=== PATIENT | male | born 1980 | race Caucasian/White ===

== ENCOUNTER 2025-02-21 08:36 | Emergency (ER) | payer BC, OTHER ==
[2025-02-21] MEDS ORDERED: Sodium Chloride 0.9% 10 ML Syringe FLUSH PRN (09:13)
[2025-02-21 09:19] LABS: BASOPHILS PERCENT AUTO 0.4 % (0.0-1.0); HEMOGLOBIN 16.8 gm/dl (14.0-18.0); IMMATURE GRAN ABSOLUTE AUTO 0.04 K/mm3 (0.00-0.05); IMMATURE GRAN PERCENT AUTO 0.7 % (0.0-0.4); LYMPHOCYTES ABSOLUTE AUTO 0.6 K/mm3 (1.0-4.8); LYMPHOCYTES PERCENT AUTO 10.2 % (24.0-44.0); MEAN CORPUSCULAR HEMOGLOBIN 29.6 pg (28.0-32.0); MEAN CORPUSCULAR HGB CONC 34.3 g/dl (32.0-36.0); MEAN CORPUSCULAR VOLUME 86.4 fl (83.0-99.0); MEAN PLATELET VOLUME 10.2 fl (9.4-12.4); MONOCYTES ABSOLUTE AUTO 0.9 K/mm3 (0.0-0.8); MONOCYTES PERCENT AUTO 15.8 % (0.0-8.0); NEUTROPHILS ABSOLUTE AUTO 4.1 K/mm3 (1.8-7.7); NEUTROPHILS PERCENT AUTO 72.9 % (41.0-71.0); PLATELET COUNT,PLT 157 K/mm3 (150-400); RED BLOOD CELL COUNT 5.67 M/mm3 (4.52-5.90); WHITE BLOOD CELL COUNT,WBC 5.68 K/mm3 (3.9-11.3)
[2025-02-21] MEDS: Metoclopramide 10 MG/2 ML SDV IVPUSH ONE (09:21)
[2025-02-21] MEDS: Lactated Ringers 1,000 ML IV ONE ×2 (09:21→12:56)
[2025-02-21 09:34] LABS: A/G RATIO 0.9 (1-2); ALBUMIN 3.5 g/dl (3.4-5.0); ANION GAP 12.8 (5-15); BILIRUBIN TOTAL 1.1 mg/dL (0.2-1.0); BUN/CREATININE RATIO 10.8 (14-18); CALCIUM 9.3 mg/dL (8.5-10.1); CREATININE 1.3 mg/dL (0.7-1.3); EST CRCL DRUG DOSING (CG) 78.04 mL/min; POTASSIUM,K 3.8 mEq/L (3.5-5.1); PROTEIN TOTAL,TP 7.3 g/dl (6.4-8.2)
[2025-02-21 10:24] LABS: SLIDE REVIEW ABNORMAL SMEAR
[2025-02-21] MEDS: Dicyclomine 10 MG Cap PO ONE (11:20)
== END 2025-02-21 15:40 | disposition home or self-care (01) ==
LOC: JD.ED 08:36
DX: K58.0 Irritable bowel syndrome with diarrhea (principal); Z91.012 Allergy to eggs
CPT/HCPCS: 36415; 80053; 83735; 85025; 96361; 96374; 99284; A9270; J2765; J7120